=== PATIENT | female | born 1995 | race Caucasian/White ===

== ENCOUNTER 2025-06-20 12:45 | Emergency (ER) | payer OTHER ==
[~2025-06-20] VITALS: Ht 170.2 cm; Wt 92.5 kg
[2025-06-20] MEDS ORDERED: HYDR-3972 PO (13:47)
[2025-06-20] MEDS ORDERED: NEOMY/BACITRA/POLYMYXIN B OINT UD PACKET TP ONE (14:07)
[2025-06-20] MEDS: NEOMY/BACITRA/POLYMYXIN B OINT UD PACKET TP ONE (14:08)
[2025-06-20 14:53] VITALS: BP 129/77; O2SAT 97
== END 2025-06-20 13:51 | disposition home or self-care (01) ==
LOC: ER 12:45
DX: S62.660A Nondisplaced fracture of distal phalanx of right index finger, initial encounter for closed fracture (principal); S61.210A Laceration without foreign body of right index finger without damage to nail, initial encounter; S67.190A Crushing injury of right index finger, initial encounter; E11.9 Type 2 diabetes mellitus without complications; Z79.4 Long term (current) use of insulin; W23.0XXA Caught, crushed, jammed, or pinched between moving objects, initial encounter; Y93.89 Activity, other specified; Y92.810 Car as the place of occurrence of the external cause; Y99.8 Other external cause status
CPT/HCPCS: 73140; A4606; A4663

== ENCOUNTER 2025-07-13 10:35 | Emergency (ER) | payer OTHER ==
[~2025-07-13] VITALS: Ht 170.2 cm; Wt 90.3 kg
[~2025-07-13 10:35] MED LIST: HYDR-3972 PO
[2025-07-13 10:38] VITALS: BP 127/84
[2025-07-13 11:44] VITALS: BP 127/84; TEMP 98.3; O2SAT 99
== END 2025-07-13 11:44 | disposition home or self-care (01) ==
LOC: ER 10:35
DX: S61.211D Laceration without foreign body of left index finger without damage to nail, subsequent encounter (principal); E10.9 Type 1 diabetes mellitus without complications; Z48.02 Encounter for removal of sutures; X58.XXXD Exposure to other specified factors, subsequent encounter
CPT/HCPCS: 73140; A4606; A4663